=== PATIENT | female | born 1965 ===

== ENCOUNTER 2024-01-06 07:30 | Inpatient (IN) | payer OTHER ==
[~2024-01-06] VITALS: Ht 162.6 cm; Wt 70.8 kg
[2024-01-06 09:15] LABS: URINE APPEARANCE Clear; URINE BILIRRUBIN Negative (NEGATIVE); URINE BLOOD Negative; URINE COLOR Yellow; URINE GLUCOSE Negative (NEGATIVE); URINE LEUKOCYTE Negative; URINE NITRATE Negative; URINE PROTEIN Negative (NEGATIVE); URINE UROBILINOGEN 0.2 E.U./dl
[2024-01-06 09:20] LABS: URINE BACTERIA 21.4 uL (0.0-1933); URINE WBC 3.8 uL (0.0-23.2)
[2024-01-06 09:28] LABS: HEMATOCRIT 40.2 % (36.0-45.00); HEMOGLOBIN 13.6 g/dL (12.0-15.00); MEAN CELL VOLUME 85.3 fL (80.00-100.00); MEAN CORPUSCULAR HEMOGLOBIN 28.9 pg (27.00-32.0); MEAN CORPUSCULAR HGB CONC 33.9 g/dl (32.0-36.0); PLATELET COUNT 255 K/uL (150-450); RED BLOOD COUNT 4.72 M/uL (4.00-6.00); RED CELL DISTRIBUTION WIDTH 14.2 % (11.5-14.5)
[2024-01-06] MEDS ORDERED: RITMOL PO (09:40)
[2024-01-06] MEDS ORDERED: ZYRTEC10 M3 PO (09:41)
[2024-01-06] MEDS ORDERED: ATORVASTATIN CA10 MG PO (09:41)
[2024-01-06] MEDS ORDERED: PROTONIX20 MG PO (09:41)
[2024-01-06 09:44] LABS: INR 0.98; PARTIAL THROMBOPLASTIN TIME 36.3 SECONDS (22.0-34.0); PROTHROMBIN TIME 10.3 SECONDS (9.0-11.5)
[2024-01-06 10:00] LABS: ALBUMIN 3.8 gm/dL (3.4-5.0); BILIRUBIN TOTAL 0.42 mg/dL (0.3-1.2); CALCIUM 9.8 mg/dL (8.5-10.1); CREATININE SERUM 0.52 mg/dL (0.55-1.02); GFR 120.28; GLOBULINA 3.6 G/DL (2.4-3.5); POTASSIUM 4.6 mEq/L (3.5-5.1); TOTAL PROTEIN 7.4 gm/dL (6.4-8.2)
[2024-01-14] MEDS ORDERED: CEFAZOLIN SODIUM 1,000 MG VIAL ONE (14:31)
[2024-01-14] MEDS ORDERED: ENALAPRILAT DIHYDRATE 1.25 MG/ML VIAL IV PRN (15:15)
[2024-01-14] MEDS ORDERED: KETOROLAC TROMETHAMINE 60 MG VIAL IM ONE ×2 (16:27→17:45)
[2024-01-14] MEDS ORDERED: TRANEXAMIC ACID 100MG/1ML (1000MG) AMPUL IV ONE (16:27)
[2024-01-14] MEDS ORDERED: POVIDONE-IODINE 0.75 OZ PACKET TOP ONE ×2 (16:52→17:45)
[2024-01-14] MEDS ORDERED: MORPHINE SULFATE 4 MG/ML CARTRIDGE IV ONE (17:45)
[2024-01-14] MEDS ORDERED: LIDOCAINE HCL 1%/EPINEPHRINE 20ML VIAL IJ ONE (17:45)
[2024-01-14] MEDS ORDERED: BUPIVACAINE HCL 30 ML VIAL IJ ONE (17:45)
[2024-01-14] MEDS ORDERED: MORPHINE SULFATE 4 MG/ML CARTRIDGE IV PRN (18:00)
[2024-01-14] MEDS ORDERED: SODIUM CHLORIDE 0.45 % 1,000 ML IV SCH (18:00)
[2024-01-14] MEDS ORDERED: ACETAMINOPHEN 500 MG GEL..CAP PO SCH (18:00)
[2024-01-14] MEDS ORDERED: ONDANSETRON HCL 2 MG/ML VIAL IV PRN (18:00)
[2024-01-14] MEDS ORDERED: OxyCODONE HCL 5 MG TABLET (ROXICODONE) PO PRN (18:00)
[2024-01-15] MEDS ORDERED: CEFAZOLIN SODIUM 1,000 MG VIAL IV SCH (01:00)
[2024-01-15] MEDS ORDERED: GABAPENTIN 300 MG CAPSULE PO SCH (01:00)
[2024-01-15 06:26] LABS: HEMATOCRIT 34.7 % (36.0-45.00); HEMOGLOBIN 11.6 g/dL (12.0-15.00); MEAN CORPUSCULAR HEMOGLOBIN 28.5 pg (27.00-32.0); MEAN CORPUSCULAR HGB CONC 33.6 g/dl (32.0-36.0); PLATELET COUNT 204 K/uL (150-450); RED BLOOD COUNT 4.08 M/uL (4.00-6.00); RED CELL DISTRIBUTION WIDTH 14.1 % (11.5-14.5)
[2024-01-15] MEDS ORDERED: PERCOCET 5-3251 EACH PO (08:56)
[2024-01-15] MEDS ORDERED: ELIQUIS2.5 MG PO (08:56)
[2024-01-15] MEDS ORDERED: DUI500 PO (08:56)
[2024-01-15] MEDS ORDERED: SENNOSIDES 1 TAB TABLET PO SCH (09:00)
[2024-01-15] MEDS ORDERED: APIXABAN 2.5 MG TABLET PO SCH (09:00)
[2024-01-15] MEDS ORDERED: VITAMIN B COMPLEX 1 EACH PO SCH ×2 (14:22→17:00)
[2024-01-15] MEDS ORDERED: SOD FERRIC GLUC COMPLX/SUCROSE 62.5 MG/5 ML AMPUL IV SCH (17:00)
[2024-01-15] MEDS ORDERED: Cyanocobalamin/Mecobalamin 1 TAB.SL SL SCH (17:00)
[2024-01-16 07:00] LABS: HEMATOCRIT 32.3 % (36.0-45.00); HEMOGLOBIN 10.9 g/dL (12.0-15.00); MEAN CELL VOLUME 86.6 fL (80.00-100.00); MEAN CORPUSCULAR HEMOGLOBIN 29.2 pg (27.00-32.0); MEAN CORPUSCULAR HGB CONC 33.7 g/dl (32.0-36.0); PLATELET COUNT 172 K/uL (150-450); RED BLOOD COUNT 3.73 M/uL (4.00-6.00); RED CELL DISTRIBUTION WIDTH 13.7 % (11.5-14.5)
[2024-01-16] MEDS ORDERED: IRON FUM,PS/FOLIC ACID/VITC/B3 1 CAP CAPSULE PO SCH (09:00)
== END 2024-01-16 18:35 | disposition home or self-care (01) | DRG 470 ==
LOC: O/R 01-14 05:43 → SURH 01-14 07:30 → OB/GYN 01-14 20:07
PROVIDERS: ADMIT Orthopaedic Surgery; ATTEND Orthopaedic Surgery
PROC: 0MNN0ZZ Release Right Knee Bursa and Ligament, Open Approach (ICD-10-PCS; 2024-01-14)
PROC: 0SRC0J9 Replacement of Right Knee Joint with Synthetic Substitute, Cemented, Open Approach (ICD-10-PCS; principal; 2024-01-14 16:00)
DX: M17.11 Unilateral primary osteoarthritis, right knee (principal); D62 Acute posthemorrhagic anemia; M22.11 Recurrent subluxation of patella, right knee